=== PATIENT | female | born 1965 | race Caucasian/White ===

== ENCOUNTER 2019-03-31 14:25 | Inpatient (IN) | payer OTHER ==
[2019-03-31 15:52] LABS: ADD MAN DIFF? NO
[2019-03-31 15:54] LABS: WHITE BLOOD COUNT 6.9 10^3/ul (4.8-10.8)
[2019-03-31 15:54] LABS: BASOPHILS % 0.6 % (0.0-2.0); EOSINOPHILS # 0.2 10^3/ul (0.0-0.5); HEMATOCRIT 37.8 % (37.0-47.0); LYMPHOCYTES # 2.1 10^3/ul (0.8-2.9); LYMPHOCYTES % 29.7 % (15.0-51.0); MEAN CORPUSCULAR HEMOGLOBIN 27.3 pg (29.0-33.0); MEAN CORPUSCULAR HGB CONC 31.7 g/dl (32.0-37.0); MEAN CORPUSCULAR VOLUME 86.1 fl (82.0-101.0); MEAN PLATELET VOLUME 9.8 fl (7.4-10.4); MONOCYTE # 0.4 10^3/ul (0.3-0.9); MONOCYTES % 5.3 % (0.0-11.0); NEUTROPHIL # 4.2 10^3/ul (1.6-7.5); NEUTROPHILS % 61.1 % (39.0-77.0); PLATELET COUNT 336 10^3/UL (140-415); RED BLOOD COUNT 4.39 10^6/ul (4.20-5.40); RED CELL DISTRIBUTION WIDTH 13.8 % (11.5-14.5)
[2019-03-31] MEDS ORDERED: ACETAMINOPHEN 325 MG TAB PO (16:00)
[2019-03-31 16:14] LABS: INR 0.96; PROTIME 12.9 Sec (11.9-14.9)
[2019-03-31 16:15] LABS: PARTIAL THROMBOPLASTIN TIME 32.9 Sec (23.0-35.0)
[2019-03-31 16:19] LABS: ALANINE AMINOTRANSFERASE 60 IU/L (13-69); ALBUMIN 4.1 g/dl (3.3-4.9); ALBUMIN/GLOBULIN RATIO 1.28; ALKALINE PHOSPHATASE 88 IU/L (42-121); ANION GAP 7 (5-13); ASPARTATE AMINO TRANSFERASE 40 IU/L (15-46); BILIRUBIN,INDIRECT 0.4 mg/dl (0-1.1); BILIRUBIN,TOTAL 0.4 mg/dl (0.2-1.3); BLOOD UREA NITROGEN 9 mg/dl (7-20); CARBON DIOXIDE 24 mmol/L (21-31); CHLORIDE 111 mmol/L (97-110); Estimated GFR > 60 mL/min (>60); GLUCOSE 114 mg/dl (70-220); POTASSIUM 3.8 mmol/L (3.5-5.1); SODIUM 142 mmol/L (135-144); TOTAL PROTEIN 7.3 g/dl (6.1-8.1)
[2019-03-31 16:29] LABS: UR CLARITY BLOODY (CLEAR); UR COLOR RED (YELLOW)
[2019-03-31 16:30] LABS: UR BILIRUBIN (Dip) NEGATIVE (NEGATIVE); UR BLOOD (Dip) 3+ mg/dL (NEGATIVE); UR GLUCOSE (Dip) 1+ mg/dL (NEGATIVE); UR KETONES (Dip) NEGATIVE (NEGATIVE); UR TOTAL PROTEIN (Dip) 3+ mg/dl (NEGATIVE)
[2019-03-31 16:31] LABS: UR NITRITE (Dip) POSITIVE (NEGATIVE); UR UROBILINOGEN (Dip) NEGATIVE (NEGATIVE)
[2019-03-31 16:36] LABS: UR ASCORBIC ACID NEGATIVE (NEGATIVE)
[2019-03-31 16:37] LABS: URINE RBCS >200 /HPF (0)
[2019-03-31 16:39] LABS: ADD UMIC YES; UR BACTERIA FEW /HPF (NONE SEEN); UR LEUKOCYTE ESTERASE (Dip) NEGATIVE Leu/ul (NEGATIVE); UR SQUAMOUS EPITHELIAL CELL RARE /HPF (FEW)
[2019-03-31] MEDS: LACTATED RINGER'S 1,000 ML IV ×2 (17:12→20:35)
[2019-03-31] MEDS: CEFAZOLIN 2 GM/50 ML (PMX) 50 ML IVPB (17:30)
[2019-03-31] MEDS ORDERED: LABETALOL HCL 20MG INJ IV (18:00)
[2019-03-31] MEDS ORDERED: TRIMETHOBENZAMIDE 100 MG/ML VIAL IM (18:00)
[2019-03-31] MEDS ORDERED: HYDROmorphONE 1 MG/5 ML IV SYRINGE IV ×3 (18:00)
[2019-03-31] MEDS ORDERED: ROCURONIUM 50 MG INJ (18:00)
[2019-03-31] MEDS ORDERED: MEPERIDINE 25 MG INJ IV (18:00)
[2019-03-31] MEDS ORDERED: OXYCODONE/ACETAMINOPHEN (5/325) TAB PO ×2 (18:00)
[2019-03-31] MEDS ORDERED: ALBUTEROL 0.083% (NEB) 2.5 MG/3 ML AMP HHN (18:00)
[2019-03-31] MEDS ORDERED: MIDAZOLAM 1 MG/ML 2 ML INJ IV (18:00)
[2019-03-31] MEDS ORDERED: DIPHENHYDRAMINE 50 MG INJ IV (18:00)
[2019-03-31] MEDS ORDERED: hydrALAzine 20 MG INJ IV (18:00)
[2019-03-31] MEDS ORDERED: ONDANSETRON 4 MG INJ IV (18:00)
[2019-03-31] MEDS ORDERED: CEFAZOLIN 1 GM INJ (18:00)
[2019-03-31] MEDS ORDERED: PROPOFOL 20 ML (18:00)
[2019-03-31] MEDS ORDERED: FENTAnyl 50 MCG/ML VIAL IV ×2 (18:00)
[2019-03-31] MEDS ORDERED: GLYCOPYRROLATE 0.4 MG INJ (18:00)
[2019-03-31] MEDS ORDERED: IPRATROPIUM (NEB) 0.5 MG/2.5 ML AMP HHN (18:00)
[2019-03-31] MEDS ORDERED: EPHEDrine 25 MG/5 ML SYG IV (18:00)
[2019-03-31] MEDS ORDERED: NEOSTIGMINE 3 MG/3 ML SYRINGE (18:00)
[2019-03-31] MEDS ORDERED: DEXAMETHASONE 4 MG/ML 5 ML INJ (18:01)
[2019-03-31] MEDS ORDERED: FENTAnyl 50 MCG/ML VIAL ×2 (18:01→18:40)
[2019-03-31] MEDS ORDERED: MIDAZOLAM 1 MG/ML 2 ML INJ (18:01)
[2019-03-31] MEDS ORDERED: ONDANSETRON 4 MG INJ (18:01)
[2019-03-31] MEDS: SILVER NITRATE SWAB TOP (18:56)
[2019-03-31] MEDS ORDERED: SUGAMMADEX SODIUM 200 MG/2 ML VIAL IV (19:15)
[2019-03-31] MEDS ORDERED: SILVER NITRATE SWAB ×2 (19:40→20:00)
[2019-03-31] MEDS: ONDANSETRON 4 MG INJ IV (19:43)
[2019-03-31] MEDS: FENTAnyl 50 MCG/ML VIAL IV (19:43)
[2019-04-01] MEDS ORDERED: HYDROCODONE/APAP (10/325) TAB (02:05)
[2019-04-01] MEDS: HYDROCODONE/APAP (10/325) TAB PO ×3 (02:10→22:22)
[2019-04-01] MEDS ORDERED: IBUPROFEN 600 MG TAB PO (02:30)
[2019-04-01] MEDS: LACTATED RINGER'S 1,000 ML IV ×3 (04:10→17:08)
[2019-04-01] MEDS: BRIMONIDINE 0.2% 5 ML BTL BOTH EYES (20:22)
[2019-04-01] MEDS: DORZOLAMIDE 2% 10 ML OPH BOTH EYES (20:23)
[2019-04-01] MEDS: TIMOLOL 0.5% 5 ML OPH BOTH EYES (20:25)
[2019-04-01] MEDS: LATANOPROST 0.005% 2.5 ML OPH BOTH EYES (22:21)
== END 2019-04-01 22:30 | disposition home or self-care (01) | DRG 745 ==
LOC: FTE 14:25 → MS3 15:49 → REC 15:49 → PP2 21:02
PROC: 0UDB7ZX Extraction of Endometrium, Via Natural or Artificial Opening, Diagnostic (ICD-10-PCS; principal; 2019-03-31 17:30)
DX: N84.0 Polyp of corpus uteri (principal); N95.0 Postmenopausal bleeding; I10 Essential (primary) hypertension; E66.01 Morbid (severe) obesity due to excess calories
CPT/HCPCS: 36415; 71045; 80053; 81001; 84703; 85025; 85610; 85730; 86850; 86900; 86901; 88305; 93005; 99285-25; G0378